=== PATIENT | male | born 1980 | race American Indian/Alaskan Native ===

== ENCOUNTER 2016-07-06 12:32 | Emergency (ER) | payer SELFPAY ==
[2016-07-06 12:40] VITALS: BP 135/95
== END 2016-07-06 12:40 | disposition left against medical advice (07) ==
LOC: ED 12:32
DX: R06.02 Shortness of breath (principal); R05 Cough; R51 Headache; Z72.0 Tobacco use; Z53.21 Procedure and treatment not carried out due to patient leaving prior to being seen by health care provider

== ENCOUNTER 2016-07-08 09:54 | Emergency (ER) | payer SELFPAY ==
[2016-07-08] MEDS ORDERED: PROVENTIL IH ONE (12:54)
[2016-07-08] MEDS ORDERED: TESSALON PERLES PO ONE (12:54)
[2016-07-08] MEDS ORDERED: ROBITUSSIN PO ONE (12:54)
[2016-07-08 13:50] LABS: Bacteria,Urine 1+ /HPF (Negative); Bilirubin,Urine NEG (Negative); Blood,Urine NEG (Negative); Ketones,Urine NEG (Negative); Leukocyte Esterase,Urine NEG (Negative); Mucus,Urine FEW /HPF; Nitrite,Urine NEG (Negative); Urobilinogen,Urine < 2.0 mg/dL (<2.0)
--- NOTE | 2016-07-08 14:02 | XRay Report ---
ROUTINE CHEST, TWO VIEWS: HISTORY: Shortness of breath. The trachea, heart, mediastinal contour, lung mosher and bony thorax are unremarkable. Chronic foreign bodies are noted in the right flank soft tissues. IMPRESSION: Unremarkable chest x-ray.
[2016-07-08] MEDS ORDERED: ROCEPHIN IM ONE (14:13)
[2016-07-08] MEDS ORDERED: XYLOCAINE 1% MPF 5 mL INFILTRATI ONE (14:13)
[2016-07-08 15:31] VITALS: BP 130/92
--- NOTE | 2016-07-08 20:34 | Emergency Department Report ---
Entered by RODRIGO QUINONES, acting as scribe for GUY NORMAN PA. - General Chief Complaint: Upper Respiratory Infection Stated Complaint: CP/KWAME/BACK PAIN Time Seen by Provider: 07/08/16 12:45 Source: patient Mode of arrival: Ambulatory Limitations: No Limitations - History of Present Illness Initial Comments: 36 y/o male with no significant PMHx, presents to the ED c/o productive cough with green/yellow sputum beginning 4 days ago. Associated symptoms of SOB, non- specific chest pain with cough, lower back pain with cough, and fever 2 days ago , but he denies dysuria, numbness, weakness, nausea, vomiting, and abdominal pain. The symptoms are aggravated by coughing and breathing, 10/10 severity. Noted the patient was seen at Urgent Care 2 days ago, at which time he was diagnosed with bronchitis and prescribed promethazine and cetirizine with no improvement in the symptoms. Patient's mother states that the lower back pain began after the patient began taking the promethazine. MD Complaint: cough, other (SOB) -: days(s) (4) Consistency: constant Improves With: nothing Worsens With: deep breaths, other (cough) Associated Symptoms: fever (2 days ago), cough, chest pain (with cough), shortness of breath, other (low back pain with cough). denies: dysuria Treatments Prior to Arrival: other (promethazine and cetirizine) - Related Data Previous Rx's Medication Instructions Recorded Last Taken Type Benzonatate [Tessalon Perles] 100 mg PO Q8HR #20 capsule 07/08/16 Unknown Rx Sulfamethoxazole/Trimethoprim 1 each PO BID #6 tablet 07/08/16 Unknown Rx [Bactrim DS TAB] guaiFENesin [Robitussin] 200 mg PO Q6HR #24 tablet 07/08/16 Unknown Rx Allergies Allergy/AdvReac Type Severity Reaction Status Date / Time No Known Allergies Allergy Unverified 07/06/16 12:40 ED Review of Systems Comment: All other systems reviewed and negative Constitutional: fever (2 days ago) Respiratory: cough (productive, yellow-green sputum), shortness of breath Cardiovascular: chest pain (with cough) Gastrointestinal: denies: abdominal pain, nausea, vomiting Genitourinary: denies: dysuria Musculoskeletal: other (low back pain with cough) ED Past Medical Hx - Past Medical History Previous Medical History?: No - Surgical History Past Surgical History?: No - Social History Smoking Status: Current Every Day Smoker Substance Use Type: Alcohol - Medications Home Medications: Home Medications Medication Instructions Recorded Confirmed Last Taken Type Benzonatate [Tessalon Perles] 100 mg PO Q8HR #20 capsule 07/08/16 Unknown Rx Sulfamethoxazole/Trimethoprim 1 each PO BID #6 tablet 07/08/16 Unknown Rx [Bactrim DS TAB] guaiFENesin [Robitussin] 200 mg PO Q6HR #24 tablet 07/08/16 Unknown Rx ED Physical Exam - General Limitations: No Limitations - Other Other exam information: GENERAL: Patient is alert and oriented x 3. No apparent distress, normal gait, atraumatic. HEAD: Head is normocephalic and atraumatic. EYES: Extraocular movements are intact. Pupils are equal, round, and reactive to light and accommodation. EARS: Symmetrical, atraumatic, non tender MOUTH:Mouth is well hydrated and without lesions. NECK: Supple. Non edematous, no carotid bruits. No lymphadenopathy or thyromegaly. LUNGS: Symmetrical with respiration. Lungs sound congested bilaterally, but no wheezing. Patient actively coughing during exam, productive with clear sputum. HEART: Regular rate and rhythm with normal S1/S2 present. No murmurs, rubs, or gallops. Chest wall is non-tender to palpation. ABDOMEN: Soft, nondistended. Nontender to palpation on all quadrants. No organomegaly was noted. Positive bowel sounds. No CVA tenderness. EXTREMITIES/MUSCULOSKELETAL: No cyanosis, clubbing, rash, lesions or edema. Full ROM bilaterally. UE/LE Pulses 2+ bilaterally. LE and UE 5+ strength bilaterally SKIN: Warm and dry. No lesions, ulceration or induration present NEUROLOGIC: No focal deficit. ED Course Vital Signs 07/08/16 07/08/16 07/08/16 10:19 13:55 15:30 Temperature 99.1 F Pulse Rate 103 H 96 H Pulse Rate [ 106 H Anterior Bilateral Throughout] Respiratory 20 20 Rate Respiratory 18 Rate [Anterior Bilateral Throughout] Blood Pressure 133/97 Blood Pressure 130/92 [Left] O2 Sat by Pulse 97 98 Oximetry ED Medical Decision Making - Medical Decision Making 36 y/o male presents complaining of UTI. ED Course: Patient received a respiratory breathing treatment. Chest x-ray ordered. Urinalysis ordered. Urinalysis is positive for urinary tract infection bacteria +1 episode positive. Chest x-ray was normal no acute pulmonary findings. Discussed findings with patient. Discussed antibiotic treatment the ED with Rocephin for pyelonephritis prophylaxis and treatment. Discussed couple of days of antibiotics from Bactrim. Discussed the need to follow-up with a PCP as referred and to return to the ED if the patient's symptoms return or worsen. Patient states understanding and will follow instructions. Vital signs stable, patient is in no acute distress. Patient states she understands and will follow-up. ED Disposition Clinical Impression: Bronchitis UTI (urinary tract infection) Qualifiers: Urinary tract infection type: acute cystitis Hematuria presence: with hematuria Qualified Code(s): N30.01 - Acute cystitis with hematuria Disposition: DISCHARGED TO HOME OR SELFCARE Is pt being admited?: No Does the pt Need Aspirin: No Condition: Stable Instructions: Urinary Tract Infection in Men (ED), Chronic Bronchitis (ED) Additional Instructions: Follow-up with her primary care physician in a week. Take medications as prescribed. Prescriptions: Benzonatate [Tessalon Perles] 100 mg PO Q8HR #20 capsule guaiFENesin [Robitussin] 200 mg PO Q6HR #24 tablet Sulfamethoxazole/Trimethoprim [Bactrim DS TAB] 1 each PO BID #6 tablet Referrals: PRIMARY CARE, [Primary Care Provider] - 3-5 Days KADE PENNY MD [Referring] - 3-5 Days LEI HORTON MD [Referring] - 3-5 Days [facility] [Outside] - 3-5 Days [facility]Outside[facility] - 3-5 Days [facility] [Outside] - 3-5 Days Forms: Work/School Release Form(ED) Time of Disposition: 15:10 This documentation as recorded by the JONI holloway GRACE,accurately reflects the service I personally performed and the decisions made by ,GUY NORMAN PA.
== END 2016-07-08 15:15 | disposition home or self-care (01) ==
LOC: ED 09:54
DX: J40 Bronchitis, not specified as acute or chronic (principal); N30.01 Acute cystitis with hematuria; F17.200 Nicotine dependence, unspecified, uncomplicated
CPT/HCPCS: 71020; 81001; 93005; 93010; 94640; 96372; 99284; J0696